=== PATIENT | female | born 1995 | race Caucasian/White ===

== ENCOUNTER 2018-03-06 15:29 | Outpatient (CLI) | payer OTHER ==
--- NOTE | 2018-03-06 16:33 | MRI ---
MRI OF LUMBAR SPINE PERFORMED WITHOUT CONTRAST ENHANCEMENT: 03/06/18 HISTORY: Back and right leg pain for about two months. The vertebral bodies are normal in height. Disc spaces appear well preserved. There is no signs of an y pars defects. There is no significant periaortic adenopathy and the visualized portions of the kidn eys appear unremarkable. T12-L1: Unremarkable. L1-2: Unremarkable. L2-3: Unremarkable. L3-4: Unremarkable. L4-5: Unremarkable. L5-S1: Unremarkable. IMPRESSION: Unremarkable MRI of the lumbar spine. POS: [facility]
== END 2018-03-06 15:30 | disposition home or self-care (01) ==
LOC: MRI 15:29
DX: M54.41 Lumbago with sciatica, right side (principal)
CPT/HCPCS: 72148